=== PATIENT | male | born 1985 | race Caucasian/White ===

== ENCOUNTER 2017-03-26 10:34 | Emergency (ER) | payer SELFPAY ==
[2017-03-26 10:37] VITALS: BMI 24.7
[2017-03-26 10:39] VITALS: O2SAT 97
--- NOTE | 2017-03-26 11:48 | C.PDOC ---
History Of Present Illness <Catie Ghosh - Last Filed: 03/26/17 11:49> <Silvia Ruiznika - Last Filed: 03/26/17 12:51> 31 yo male come in for evaluation of intermittent headache for past 2 years. Pt describes headache as frontal, radiating to B/L ears. Now, for past 5 days developed some painful mass over external left ear. Otherwise, pt denies worse headache of life, weakness, dizziness, vertigo, fever, chills, visual changes, focal deficits, ear discharges, sore throat, neck apin, denies known trauma or injury to head or ears. Ambulate to Ed for evaluation, not in any apparent distress. (Barbara Ruiz) <Catie Ghosh - Last Filed: 03/26/17 11:49> History Per: Patient History/Exam Limitations: None Onset/Duration Of Symptoms: Days (5) <Barbara Ruiz - Last Filed: 03/26/17 12:51> Time Seen by Provider: 03/26/17 11:31 Chief Complaint (Nursing): ENT Problem Past Medical History Reviewed: Historical Data, Nursing Documentation, Vital Signs Family History: States: No Known Family Hx - Social History Hx Alcohol Use: Yes Hx Substance Use: No - Immunization History Hx Tetanus Toxoid Vaccination: No Hx Influenza Vaccination: No Hx Pneumococcal Vaccination: No <TormaryBarbara - Last Filed: 03/26/17 12:51> Vital Signs: Last Vital Signs Temp 96 F L 03/26/17 10:39 Pulse 82 03/26/17 10:39 Resp 18 03/26/17 10:39 BP 137/88 03/26/17 10:39 Pulse Ox 97 03/26/17 12:42 - [facility] Procedures INJECT/INFUSE NEC (09/11/13) Review Of Systems Except As Marked, All Systems Reviewed And Found Negative. Constitutional: Negative for: Fever, Chills Eyes: Negative for: Vision Change ENT: Positive for: Ear Pain (Left ear, external painful mass). Negative for: Ear Discharge, Throat Pain Musculoskeletal: Negative for: Neck Pain Neurological: Positive for: Headache (Intermittent) <Barbara Ruiz - Last Filed: 03/26/17 12:51> Physical Exam - Physical Exam Appears: Well, Non-toxic, No Acute Distress Skin: Normal Color, Warm, Dry, No Rash Head: Normacephalic Eye(s): bilateral: PERRL, EOMI Ear(s): Left: Normal, Right: Other (Right external ear tendern mass superior aspect tragus 3 cm diameter, (+) flactulance, no erythema. TM- normal.) Nose: No Flaring, No Discharge Oral Mucosa: Moist, No Drooling Tongue: Normal Appearing Lips: Normal Appearing Throat: No Erythema, No Exudate, No Drooling Neck: Trachea Midline, Supple Back: Normal Inspection Extremity: Normal ROM, No Pedal Edema, No Deformity Neurological/Psych: Oriented x3, Normal Speech, Normal Cognition, Normal Motor, Normal Sensation, Normal Reflexes <Barbara Ruiz - Last Filed: 03/26/17 12:51> ED Course And Treatment O2 Sat by Pulse Oximetry: 97 (RA) Pulse Ox Interpretation: Normal - CT Scan/US CT - Head Other Rad Studies (CT/US): Read By Radiologist, Radiology Report Reviewed CT/US Interpretation: PROCEDURE: CT HEAD WITHOUT CONTRAST. HISTORY: headache. COMPARISON: None available. TECHNIQUE: Axial computed tomography images were obtained through the head/brain without intravenous contrast. Radiation dose: Total exam DLP = 834.98 mGy-cm. This CT exam was performed using one or more of the following dose reduction techniques: Automated exposure control, adjustment of the mA and/or kV according to patient size, and/ or use of iterative reconstruction technique. FINDINGS: HEMORRHAGE: No intracranial hemorrhage. BRAIN: No mass effect or edema. No atrophy or chronic microvascular ischemic changes. VENTRICLES: No hydrocephalus. CALVARIUM: Unremarkable. PARANASAL SINUSES: Unremarkable as visualized. No significant inflammatory changes. MASTOID AIR CELLS: Unremarkable as visualized. No inflammatory changes. OTHER FINDINGS: None. IMPRESSION: No acute intracranial pathology identified. Progress Note: On re-evaluation, pt is afebrile, hemodynamicaly stable. Non- toxic. Tolerate PO well in ED. Head: AT/NC. ENT: exam c/w Right tragus tender mass r/o abscess vs trauma. No evidence of otitis ext/media. Neck: SUPple, (-) meningeal sign. Lungs: CTA B/L, BS equal B/L. Neurologicaly intact. CT head review and appears normal. I&D to Right ear performed, would cx-pending. Pt advised and ref. to F/u with ENT in 2-3 days for re-eval. return if any worsening or new changes. <Barbara Ruiz - Last Filed: 03/26/17 12:51> Supervising Attending Note - Supervising Attending Note The Documented history was done by the: Physician Pusher Operator The documented physical exam was done by the: Physician Pusher Operator The documented procedures were done by the: Physician Pusher Operator - Attestation: I have personally seen and examined this patient.: Yes I have fully participated in the care of the patient.: Yes I have reviewed all pertinent clinical information, including history, physical exam and plan: Yes <Catie Ghosh - Last Filed: 03/26/17 11:49> <Barbara Ruiz - Last Filed: 03/26/17 12:51> - Notes: Notes:: NEW ONSET SWELLING R EAR X 5 DAYS. DENIES TRAUMA. NO DC, FEVER HO DM. EXAM ABOVE. NEEDLES ASPIARTION, ENT REFER (Catie Ghosh) - Incision & Drainage Of Abscess Prep Used: Betadine Procedure: Irrigated Cavity W/Saline (needle gauge #18 aspiration ove Right external ear abscess with bloody fluid) <Barbara Ruiz - Last Filed: 03/26/17 12:51> Medical Decision Making <Catie Ghosh - Last Filed: 03/26/17 11:49> <Barbara Ruiz - Last Filed: 03/26/17 12:51> Medical Decision Making: PLAN: * CT - Head * Tramadol PO (Barbara Ruiz) Disposition <Catie Ghosh - Last Filed: 03/26/17 11:49> Counseled Patient/Family Regarding: Studies Performed, Diagnosis, Need For Followup, Rx Given - Disposition Disposition Time: 12:47 <Barbara Ruiz - Last Filed: 03/26/17 12:51> - Disposition Referrals: Vinay Terry MD [Staff Provider] - Disposition: HOME/ ROUTINE Condition: STABLE Additional Instructions: TAKE MEDICATION PRESCRIBED FOLLOW UP WITH PMD, ENT IN 2-3 DAYS FOR RE-EVALUATION. RETURN TO ED IF ANY WORSENING OR NEW CHANGES. Prescriptions: Amoxicillin/Clavulanate [Augmentin 875 MG-125 MG] 1 tab PO BID #14 tab Instructions: Tension Headache (ED), Abscess (ED) Forms: [employer] (Sami) Print Language: CUBAN - Clinical Impression Clinical Impression: Headache, Cellulitis of tragus <Catie Ghosh - Last Filed: 03/26/17 11:49> - PA / LATH HAND / Resident Statement MD/DO has reviewed & agrees with the documentation as recorded. - Scribe Statement The provider has reviewed the documentation as recorded by the Scribe <Barbara Ruiz - Last Filed: 03/26/17 12:51> - Scribe Statement Blanka White All medical record entries made by the Scribe were at my direction and personally dictated by me. I have reviewed the chart and agree that the record accurately reflects my personal performance of the history, physical exam, medical decision making, and the department course for this patient. I have also personally directed, reviewed, and agree with the discharge instructions and disposition. (Barbara Ruiz)
--- NOTE | 2017-03-26 12:35 | CT ---
PROCEDURE: CT HEAD WITHOUT CONTRAST. HISTORY: headache COMPARISON: None available. TECHNIQUE: Axial computed tomography images were obtained through the head/brain without intravenous contrast. Radiation dose: Total exam DLP = 834.98 mGy-cm. This CT exam was performed using one or more of the following dose reduction techniques: Automated exposure control, adjustment of the mA and/or kV according to patient size, and/or use of iterative reconstruction technique. FINDINGS: HEMORRHAGE: No intracranial hemorrhage. BRAIN: No mass effect or edema. No atrophy or chronic microvascular ischemic changes. VENTRICLES: No hydrocephalus. CALVARIUM: Unremarkable. PARANASAL SINUSES: Unremarkable as visualized. No significant inflammatory changes. MASTOID AIR CELLS: Unremarkable as visualized. No inflammatory changes. OTHER FINDINGS: None. IMPRESSION: No acute intracranial pathology identified.
[2017-03-26] MEDS ORDERED: Amoxicillin-Clav 875-125 mg Tab PO STA (12:48)
[2017-03-26] MEDS ORDERED: Amoxicillin-Clav 875-125 mg Tab PO ONE (13:09)
[2017-03-26 13:19] VITALS: BP 130/74; PULSE 74; RESP 20; TEMP 97.2
== END 2017-03-26 13:17 | disposition home or self-care (01) ==
LOC: C.ER 10:34
DX: R51 Headache (principal); H60.01 Abscess of right external ear

== ENCOUNTER 2017-03-29 19:40 | Emergency (ER) | payer SELFPAY ==
[2017-03-29 19:40] VITALS: BMI 24.7
[2017-03-29 20:04] VITALS: BP 135/90; PULSE 68; TEMP 98.4; O2SAT 96
--- NOTE | 2017-03-29 20:11 | C.PDOC ---
History Of Present Illness 31 year old male presents to the ER for a complaint of a growth to his right external ear. Patient was seen here on 03/26/17 for the same complaint, he had the growth aspirated with bloody discharge, he was placed on augmentin, cultures were sent which were negative, and he was referred to follow up with ENT. However, patient did not follow up and is stating that the growth has grown again and is causing some discomfort. Denies fever or drainage from ear. Chief Complaint (Nursing): ENT Problem History Per: Patient History/Exam Limitations: None Onset/Duration Of Symptoms: Days Current Symptoms Are (Timing): Still Present Quality (Ear): Other (Growth) Symptoms Have Been: Continuous Past Medical History Reviewed: Historical Data, Nursing Documentation, Vital Signs Vital Signs: Last Vital Signs Temp 98.4 F 03/29/17 20:00 Pulse 68 03/29/17 20:00 Resp 20 03/29/17 20:22 BP 135/90 03/29/17 20:00 Pulse Ox 96 03/30/17 00:02 - Medical History PMH: No Chronic Diseases - [facility] Procedures INJECT/INFUSE NEC (09/11/13) Family History: States: Unknown Family Hx - Social History Hx Alcohol Use: Yes Hx Substance Use: No - Immunization History Hx Tetanus Toxoid Vaccination: No Hx Influenza Vaccination: No Hx Pneumococcal Vaccination: No Review Of Systems Constitutional: Negative for: Fever, Chills ENT: Positive for: Other (Growth on right ear). Negative for: Ear Pain, Ear Discharge Physical Exam - Physical Exam Appears: Non-toxic, No Acute Distress Skin: Normal Color, Warm, Dry Head: Atraumatic, Normacephalic Eye(s): bilateral: Normal Inspection Ear(s): Right: Other (Fluctuant growth to external right ear, no erythema or drainage.), Bilateral: Normal Neurological/Psych: Oriented x3, Normal Speech ED Course And Treatment O2 Sat by Pulse Oximetry: 96 (Room air) Pulse Ox Interpretation: Normal Progress Note: Growth appears to be hematoma vs cystic structure. Patient advised to continue antibiotics and to follow up with ENT. Disposition - Disposition Referrals: Vinay Terry MD [Staff Provider] - Disposition: HOME/ ROUTINE Disposition Time: 20:09 Condition: STABLE Additional Instructions: Follow up with ENT . Continue all medications as instructed. Return to ED if feel worse. Forms: [employer] (Czech), Gen Discharge Inst Czech Print Language: THAI - Clinical Impression Clinical Impression: Mass of right ear - PA / PASSENGER SERVICE AGENT / Resident Statement MD/DO has reviewed & agrees with the documentation as recorded. - Scribe Statement The provider has reviewed the documentation as recorded by the Scribe Shantanu Sutton All medical record entries made by the Scribe were at my direction and personally dictated by me. I have reviewed the chart and agree that the record accurately reflects my personal performance of the history, physical exam, medical decision making, and the department course for this patient. I have also personally directed, reviewed, and agree with the discharge instructions and disposition.
[2017-03-29 20:23] VITALS: RESP 20
== END 2017-03-29 20:22 | disposition home or self-care (01) ==
LOC: C.ER 19:40
DX: H93.8X1 Other specified disorders of right ear (principal)